=== PATIENT | female | born 1965 | race African-American/Black ===

== ENCOUNTER → 2018-08-29 | Day surgery (SDC) | payer BC ==
[~2018-08-29] MED LIST: BUPIVACAINE 0.5%/EPI 30 ML SDV INJ ONE; CEFAZOLIN SOD 2 GM/D5W 50ML 50 ML IV ONE; DEXAMETHASONE SOD PHOS INJ 4 MG/ML VIAL ONE; FENTANYL CITRATE/PF 100MCG/2 ML INJ ONE; KETOROLAC TROMETHAMINE 30 MG/ML VIAL ONE; LIDOCAINE HCL 2% LOCAL INJ 5 ML SDV VIAL INJ ONE; LISINOPRIL20 MG PO; METOPROLOL SUCC25 MG PO; MIDAZOLAM HCL 2 MG/2 ML VIAL ONE; MORPHINE SULFATE 2 MG/ML SYR ONE; ONDANSETRON HCL INJ 2 MG/ML VIAL ONE; PROPOFOL IV EMULSION 10 MG/ML 20 ML VIAL ONE; SEVOFLURANE INHAL SOLN 250 ML PEN BTL ONE
[2018-08-29 10:05] VITALS: BP 150/87
--- NOTE | 2018-08-30 15:35 | Operative Report ---
DATE OF PROCEDURE: August 29, 2018 PREOPERATIVE DIAGNOSES 1. Left knee medial meniscus tear. 2. Left knee degenerative joint disease of the knee. POSTOPERATIVE DIAGNOSES 1. Left knee medial meniscus tear. 2. Left knee degenerative joint disease of the knee. PROCEDURES PERFORMED 1. Left knee examination under anesthesia. 2. Left knee arthroscopy. 3. Left knee partial medial meniscectomy. 4. Left knee chondroplasty of the patella, trochlea, medial femoral condyle, medial tibial plateau, lateral femoral condyle, lateral tibial plateau. CREDIT UNION MANAGER: Diana Benson ANESTHESIA: General endotracheal intubation anesthesia. IV FLUIDS: Per the anesthesia record. DESCRIPTION OF PROCEDURE: Ms. Lund was taken to the operating room and placed in the supine position on the operating table. Following induction of general anesthesia as well as endotracheal intubation, the patient's left lower extremity was examined under anesthesia. She was found to have a mild effusion within the knee joint but an otherwise ligamentously stable knee. The patient's lower extremity was prepped and draped in the standard surgical fashion. A 2-portal technique was used to provide this patient arthroscopic evaluation of the knee joint. Examination of the suprapatellar pouch and medial and lateral gutters found no evidence of loose bodies. There was, however, evidence of significant chondromalacia of the patellar and trochlear surfaces. The scope was advanced to the medial compartment. Examination of the medial compartment demonstrated a tear in the posterior horn of the medial meniscus. There was also significant arthrosis of the medial compartment. A combination of biting forceps and a motorized shaver were used to resect the torn portion of meniscus. Chondroplasties of the medial femoral condyle and medial tibial plateau were performed at this time. Scope was advanced to intercondylar notch. Anterior cruciate ligament was identified and found to be intact. Scope was advanced to the lateral compartment, and significant chondromalacia of the articulating surfaces was encountered. Chondroplasties of the lateral femoral condyle and lateral tibial plateau were performed at this time. The scope was then placed in the suprapatellar pouch, and chondroplasties of the patella and trochlea were performed. The knee was deflated of its sterile normal saline. Each of the portal sites were closed using 4-0 nylon suture. The portal sites as well as the knee itself were injected with 0.5% Marcaine with epinephrine. Sterile dressings were applied. The patient was awakened and taken to the postanesthesia care unit in stable condition. Job#: [id number]
--- OUTSIDE RECORDS SUMMARY | 2018-09-11 09:40 | XMS REPORT ---
Author Author [facility] Address Unknown Phone Unavailable Care Team Providers Care Stoner Hand Name Role Phone Unavailable Unavailable Problems This patient has no known problems. Allergies, Adverse Reactions, Alerts This patient has no known allergies or adverse reactions. Medications This patient has no known medications. Encounters Start Date/Time End Date/Time Encounter Type Admission Type Attending Clinicians Care Facility Care Department Encounter ID 2017-09-25 14:55:09 2017-09-25 14:55:09 Emergency [facility] [id number]
--- OUTSIDE RECORDS SUMMARY | 2018-09-11 09:40 | XMS REPORT | Clinical Summary ---
Author Author [facility] Organization [facility] Address Unknown Phone Unavailable Care Team Providers Care Veterinary Science Teacher Name Role Phone PCP Unavailable Allergies No Known Allergies Current Medications Prescription Sig. Disp. Refills Start End Date Status Date temazepam (RESTORIL) 30 Take by mouth nightly at Active mg cap bedtime as needed for Insomnia. Amlodipine-Benazepril Take 1 capsule by mouth Active (LOTREL) 10-40 mg capsule daily. traZODone (DESYREL) 50 mg Take 50 mg by mouth at Active tablet bedtime nightly. diclofenac sodium 75 mg Take 75 mg by mouth 2 Active delayed release tablet times daily. Active Problems Not on file Encounters Date Type Specialty Care Team Description 09/25/2017 Emergency [facility], Genetics after 08/28/2017 Social History Tobacco Use Types Packs/Day Years Used Date Never Smoker Alcohol Use Drinks/Week oz/Week Comments Yes occ Sex Assigned at Date Recorded Not on file Last Filed Vital Signs Vital Sign Reading Time Taken Blood Pressure 135/99 09/25/2017 2:10 PM CDT Pulse 108 09/25/2017 2:10 PM CDT Temperature 36.9 C (98.4 F) 09/25/2017 2:10 PM CDT Respiratory Rate 20 09/25/2017 2:10 PM CDT Oxygen Saturation 98% 09/25/2017 2:10 PM CDT Inhaled Oxygen - - Concentration Weight 101.6 kg (224 lb) 09/25/2017 2:09 PM CDT Height - - Body Mass Index - - Plan of Treatment Health Maintenance Due Date Last Done Comments Cervical Cancer Scrn (3 1986 Yrs) Breast Cancer Scrn 2005 (Yearly) Colorectal Cancer Scrn 2015 Annual (FIT/FOBT) Age 50 to 75 IMM Influenza Seasonal 08/27/2018Aug to January (>/=19 yrs) Results Not on fileafter 08/28/2017
== END | disposition home or self-care (01) ==
LOC: OR 06:06
PROVIDERS: ATTEND Specialist
DX: S83.222A Peripheral tear of medial meniscus, current injury, left knee, initial encounter (principal); M17.12 Unilateral primary osteoarthritis, left knee; M22.42 Chondromalacia patellae, left knee; R53.1 Weakness; I10 Essential (primary) hypertension; K21.9 Gastro-esophageal reflux disease without esophagitis; F41.9 Anxiety disorder, unspecified; X58.XXXA Exposure to other specified factors, initial encounter; Z01.810 Encounter for preprocedural cardiovascular examination; Z68.41 Body mass index [BMI] 40.0-44.9, adult; Z82.61 Family history of arthritis
CPT/HCPCS: 29881; 93005; J1100; J1885; J2001; J2250; J2270; J2405; J0690